=== PATIENT | female | born 1960 | race Caucasian/White ===

== ENCOUNTER 2020-08-03 00:48 | Inpatient (IN) | payer MEDICAID ==
[~2020-08-03] VITALS: Ht 157.5 cm; Wt 108.5 kg
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
[2020-08-03] MEDS ORDERED: SODIUM CHLORIDE 0.9% 1,000ML IVBOLUS ONE (02:00)
[2020-08-03] MEDS ORDERED: ONDANSETRON 2MG/ML, 2ML IVPush ONE (02:00)
[2020-08-03] MEDS ORDERED: HYDROmorphone 1 MG/ML, 1ML INJ IV ONE (02:00)
[2020-08-03] MEDS ORDERED: ONDANSETRON 2MG/ML, 2ML ONE ×2 (02:07→03:23)
[2020-08-03] MEDS ORDERED: HYDROmorphone 1 MG/ML, 1ML INJ ONE (02:07)
--- NOTE | 2020-08-03 02:15 | NUR ---
Patient is resting in bed. Bed in lowest, rails engaged, call light on lap. Vital Signs within normal limits. WCTM.
[2020-08-03] MEDS ORDERED: SULF500T47 PO (02:18)
[2020-08-03] MEDS ORDERED: HYDR200T72 PO (02:18)
[2020-08-03] MEDS ORDERED: PROBIOTIC (02:18)
[2020-08-03 02:30] LABS: BASOPHILS % (AUTO) 0 % (0-1); EOSINOPHILS % (AUTO) 0 % (1-7); LYMPHOCYTES % (AUTO) 6 % (22-44); MEAN CORPUSCULAR HEMOGLOBIN 33.5 pg (27.0-34.8); MEAN CORPUSCULAR HGB CONC 34.2 g/dL (32.4-35.8); MEAN PLATELET VOLUME 9.3 fL (7.4-10.4); MONOCYTES % (AUTO) 6 % (2-9); NEUTROPHILS % (AUTO) 88 % (42-75); PLATELET COUNT 179 x10^3/uL (130-400); RED BLOOD COUNT 4.68 x10^6/uL (3.82-5.3); RED CELL DISTRIBUTION WIDTH 14.2 % (9.6-15.2)
[2020-08-03 02:33] LABS: ALANINE AMINOTRANSFERASE 315 U/L (12-78); ALBUMIN 3.4 g/dL (3.4-5.0); ANION GAP 9 mmol/L (5-15); CALCIUM 7.8 mg/dL (8.5-10.1); CHLORIDE 108 mmol/L (98-107); CREATININE 0.88 mg/dL (0.55-1.02)
[2020-08-03 02:35] LABS: ALKALINE PHOSPHATASE 121 U/L (45-117); BILIRUBIN,TOTAL 0.5 mg/dL (0.2-1.0); TOTAL PROTEIN 7.4 g/dL (6.4-8.2)
[2020-08-03] MEDS ORDERED: hydrALAzine 20 MG/ML, 1ML ONE (02:58)
[2020-08-03] MEDS ORDERED: hydrALAzine 20 MG/ML, 1ML IV ONE (03:30)
[2020-08-03] MEDS ORDERED: HYDROmorphone 1 MG/ML, 1ML INJ IVPush PRN (03:30)
[2020-08-03] MEDS ORDERED: ONDANSETRON 2MG/ML, 2ML IVPush PRN ×2 (03:30→04:00)
[2020-08-03] MEDS ORDERED: SODIUM CHLORIDE 0.9% 1,000 ML IV ONE (03:30)
--- NOTE | 2020-08-03 03:37 | NUR ---
SPOKE TO PINEDA WALLACE ABOUT STAT ORDER MRI FOR PT AND WAS TOLD TO HAVE IT DONE AT 0600 WHEN MRI TECHS GOT TO WORK.
--- NOTE | 2020-08-03 03:37 | NUR ---
GAVE REPORT TO MELA MARROQUIN, [phone]
--- NOTE | 2020-08-03 03:45 | NUR ---
PT TAKEN TO FLOOR BY TECH, IN NO ACUTE DISTRESS.
[2020-08-03] MEDS ORDERED: ENALAPRILAT 1.25 MG/ML, 2ML IVPush PRN (04:00)
[2020-08-03] MEDS ORDERED: IBUPROFEN 600 MG TABLET PO PRN (04:00)
[2020-08-03] MEDS ORDERED: DOCUSATE 100 MG CAPSULE PO PRN (04:00)
[2020-08-03] MEDS ORDERED: THIAMINE 200 MG in DEXTROSE 5% 50 ML IVPB ONE (04:00)
[2020-08-03] MEDS ORDERED: LORazepam 2 MG/ML, 1ML IV PRN ×5 (04:00)
[2020-08-03] MEDS ORDERED: ZOLPIDEM 5MG TABLET PO PRN (04:00)
[2020-08-03] MEDS ORDERED: METOCLOPRAMIDE 5 MG/ML, 2ML IVPush PRN (04:00)
[2020-08-03] MEDS ORDERED: LORazepam 1MG TABLET PO PRN ×4 (04:00)
[2020-08-03] MEDS ORDERED: GUAIFENESIN/DM 200-20MG, 10ML UDC PO PRN (04:00)
[2020-08-03] MEDS: LACTATED RINGERS 1,000 ML IV SCH ×4 (04:28→18:36)
[2020-08-03] MEDS: LORazepam 0.5MG TABLET PO PRN ×2 (04:46→10:54)
[2020-08-03] MEDS: morphine SULFATE 10 MG/ML, 1ML IVPush PRN ×5 (04:47→21:57)
[2020-08-03 05:34] VITALS: BP 163/82
[2020-08-03 07:48] VITALS: BP 157/87
[2020-08-03] MEDS ORDERED: HYDROXYCHLOROQUINE 200 MG TABLET PO SCH (09:00)
[2020-08-03] MEDS ORDERED: FAMOTIDINE 20 MG/2 ML IVPush SCH (09:00)
[2020-08-03] MEDS ORDERED: SULFASALAZINE 500 MG TABLET PO SCH (09:00)
[2020-08-03 12:26] VITALS: BP 153/87
[2020-08-03] MEDS ORDERED: ENOXAPARIN 40 MG/0.4 ML SQ SCH (17:00)
[2020-08-03 20:00] VITALS: BP 159/86
[2020-08-03] MEDS: BACLOFEN 10 MG TABLET PO PRN (23:35)
[2020-08-04 01:01] VITALS: BP 133/81
[2020-08-04] MEDS: LACTATED RINGERS 1,000 ML IV SCH ×3 (01:25→14:26)
[2020-08-04] MEDS: morphine SULFATE 10 MG/ML, 1ML IVPush PRN ×4 (03:01→16:20)
[2020-08-04] MEDS ORDERED: LACTATED RINGERS 1,000 ML IV SCH (04:00)
[2020-08-04 05:33] LABS: BASOPHILS % (AUTO) 0 % (0-1); EOSINOPHILS % (AUTO) 0 % (1-7); LYMPHOCYTES % (AUTO) 4 % (22-44); MEAN CORPUSCULAR HEMOGLOBIN 33.6 pg (27.0-34.8); MEAN CORPUSCULAR HGB CONC 33.8 g/dL (32.4-35.8); MEAN PLATELET VOLUME 9.7 fL (7.4-10.4); MONOCYTES % (AUTO) 6 % (2-9); NEUTROPHILS % (AUTO) 90 % (42-75); PLATELET COUNT 160 x10^3/uL (130-400); RED BLOOD COUNT 4.97 x10^6/uL (3.82-5.3); RED CELL DISTRIBUTION WIDTH 14.4 % (9.6-15.2)
[2020-08-04 05:36] LABS: ALBUMIN 2.7 g/dL (3.4-5.0); ANION GAP 6 mmol/L (5-15); CALCIUM 8.4 mg/dL (8.5-10.1); CHLORIDE 108 mmol/L (98-107)
[2020-08-04 05:42] LABS: ALANINE AMINOTRANSFERASE 139 U/L (12-78); ALKALINE PHOSPHATASE 89 U/L (45-117); CREATININE 0.78 mg/dL (0.55-1.02); TOTAL PROTEIN 6.6 g/dL (6.4-8.2)
[2020-08-04 07:31] VITALS: BP 86/81
[2020-08-04 08:45] VITALS: BP 147/89
[2020-08-04 14:15] VITALS: BP 159/81
[2020-08-04] MEDS: ENOXAPARIN 30 MG/0.3 ML SQ SCH (14:24)
[2020-08-04] MEDS: CEFTRIAXONE 1,000 MG in DEXTROSE 5% 50 ML IVPB SCH (16:20)
[2020-08-04] MEDS: SODIUM CHLORIDE 0.9% 1,000 ML IV SCH ×2 (16:21→22:40)
[2020-08-04] MEDS: METRONIDAZOLE PMX 500MG/100ML 100 ML IV SCH (16:58)
[2020-08-04 19:26] VITALS: BP 138/82
[2020-08-04] MEDS ORDERED: CALCIUM CARBONATE 500 MG TAB.CHEW PO ONE (23:30)
[2020-08-05] MEDS: BACLOFEN 10 MG TABLET PO PRN (00:18)
[2020-08-05] MEDS: METRONIDAZOLE PMX 500MG/100ML 100 ML IV SCH ×3 (00:21→16:17)
[2020-08-05 00:52] VITALS: BP 134/84
[2020-08-05] MEDS: ENOXAPARIN 30 MG/0.3 ML SQ SCH ×2 (02:09→14:10)
[2020-08-05] MEDS: morphine SULFATE 10 MG/ML, 1ML IVPush PRN ×3 (02:09→19:53)
[2020-08-05 05:20] LABS: MEAN CORPUSCULAR HEMOGLOBIN 33.1 pg (27.0-34.8); MEAN CORPUSCULAR HGB CONC 33.5 g/dL (32.4-35.8); MEAN PLATELET VOLUME 9.9 fL (7.4-10.4); PLATELET COUNT 152 x10^3/uL (130-400); RED BLOOD COUNT 4.45 x10^6/uL (3.82-5.3); RED CELL DISTRIBUTION WIDTH 14.1 % (9.6-15.2)
[2020-08-05] MEDS: SODIUM CHLORIDE 0.9% 1,000 ML IV SCH ×3 (05:20→19:53)
[2020-08-05 05:31] LABS: CHLORIDE 106 mmol/L (98-107)
[2020-08-05 05:46] LABS: ALANINE AMINOTRANSFERASE 77 U/L (12-78); ALBUMIN 2.3 g/dL (3.4-5.0); ALKALINE PHOSPHATASE 90 U/L (45-117); ANION GAP 9 mmol/L (5-15); BILIRUBIN,TOTAL 1.1 mg/dL (0.2-1.0); CALCIUM 8.3 mg/dL (8.5-10.1); CREATININE 0.59 mg/dL (0.55-1.02); TOTAL PROTEIN 6.4 g/dL (6.4-8.2)
[2020-08-05 06:25] LABS: BAND#(MANUAL) 2.65 x10^3/uL; BANDS%(MANUAL) 14 % (0-7); LYMPH#(MANUAL) 0.95 x10^3/uL (1-3.4); LYMPHS% (MANUAL) 5 % (22-44); MONOS#(MANUAL) 1.13 x10^3/uL (0.3-2.7); MONOS% (MANUAL) 6 % (2-9); SEG#(MANUAL) 14.18 x10^3/uL (1.8-6.8); SEGS% (MANUAL) 75 % (42-75)
[2020-08-05 06:26] LABS: <PLATELET ESTIMATE> DECREASED; <PLT MORPHOLOGY> NORMAL PLT MORPH; <RBC MORPHOLOGY> NORMAL
[2020-08-05 06:27] LABS: PMNS WITH VACUOLES 1+
[2020-08-05 07:02] VITALS: BP 146/86
[2020-08-05] MEDS ORDERED: BISACODYL 10 MG SUPP PR PRN (08:30)
[2020-08-05] MEDS: SENNA/DOCUSATE TABLET PO SCH (09:03)
[2020-08-05] MEDS: CALCIUM CARBONATE 500 MG TAB.CHEW PO PRN ×3 (12:07→19:53)
[2020-08-05 12:22] VITALS: BP 130/82
[2020-08-05] MEDS: CEFTRIAXONE 1,000 MG in DEXTROSE 5% 50 ML IVPB SCH (15:10)
[2020-08-05 19:02] VITALS: BP 130/70
[2020-08-06 00:17] VITALS: BP 132/73
[2020-08-06] MEDS: ENOXAPARIN 30 MG/0.3 ML SQ SCH ×2 (01:33→14:00)
[2020-08-06] MEDS: morphine SULFATE 10 MG/ML, 1ML IVPush PRN (01:34)
[2020-08-06] MEDS: SODIUM CHLORIDE 0.9% 1,000 ML IV SCH (02:40)
[2020-08-06 05:29] LABS: MEAN CORPUSCULAR HEMOGLOBIN 33.2 pg (27.0-34.8); MEAN CORPUSCULAR HGB CONC 33.4 g/dL (32.4-35.8); MEAN PLATELET VOLUME 9.4 fL (7.4-10.4); PLATELET COUNT 165 x10^3/uL (130-400); RED BLOOD COUNT 4.07 x10^6/uL (3.82-5.3); RED CELL DISTRIBUTION WIDTH 13.9 % (9.6-15.2)
[2020-08-06 05:32] LABS: ALBUMIN 2.2 g/dL (3.4-5.0); ANION GAP 6 mmol/L (5-15); CALCIUM 8.4 mg/dL (8.5-10.1); CHLORIDE 105 mmol/L (98-107)
[2020-08-06 05:35] LABS: ALANINE AMINOTRANSFERASE 57 U/L (12-78); ALKALINE PHOSPHATASE 79 U/L (45-117); BILIRUBIN,TOTAL 0.9 mg/dL (0.2-1.0); CREATININE 0.52 mg/dL (0.55-1.02); TOTAL PROTEIN 6.2 g/dL (6.4-8.2)
[2020-08-06 06:13] LABS: <PLATELET ESTIMATE> DECREASED; <PLT MORPHOLOGY> NORMAL PLT MORPH; ANISOCYTOSIS 1+; BAND#(MANUAL) 0.88 x10^3/uL; BANDS%(MANUAL) 6 % (0-7); LYMPH#(MANUAL) 0.59 x10^3/uL (1-3.4); LYMPHS% (MANUAL) 4 % (22-44); METAMYELOCYTES# (MANUAL) 0.29 x10^3/uL (0-0); METAMYELOCYTES% (MANUAL) 2 % (0-1); MONOS#(MANUAL) 0.74 x10^3/uL (0.3-2.7); MONOS% (MANUAL) 5 % (2-9); PMNS WITH VACUOLES 1+; POLYCHROMASIA 1+; SEGS% (MANUAL) 83 % (42-75)
[2020-08-06 07:14] VITALS: BP 124/79
[2020-08-06] MEDS: SENNA/DOCUSATE TABLET PO SCH (08:12)
[2020-08-06] MEDS: METRONIDAZOLE PMX 500MG/100ML 100 ML IV SCH ×3 (08:13→16:36)
[2020-08-06] MEDS: CALCIUM CARBONATE 500 MG TAB.CHEW PO PRN (08:28)
[2020-08-06] MEDS ORDERED: CALCIUM CARBONATE 500 MG TAB.CHEW PO PRN (11:30)
[2020-08-06 12:52] VITALS: BP 161/85
[2020-08-06] MEDS ORDERED: OMNIPAQUE 350 MG/ML, 100ML BOTTLE ONE (12:56)
[2020-08-06] MEDS: CEFTRIAXONE 1,000 MG in DEXTROSE 5% 50 ML IVPB SCH (16:35)
[2020-08-06] MEDS: BACLOFEN 10 MG TABLET PO PRN (17:15)
[2020-08-06 18:43] VITALS: BP 149/90
[2020-08-06] MEDS: DOXYCYCLINE 100MG TABLET PO SCH (20:41)
[2020-08-06] MEDS: THIAMINE 100MG TABLET PO SCH (20:41)
[2020-08-07] MEDS: ENOXAPARIN 30 MG/0.3 ML SQ SCH (00:33)
[2020-08-07] MEDS: METRONIDAZOLE PMX 500MG/100ML 100 ML IV SCH ×2 (00:33→08:30)
[2020-08-07 00:40] VITALS: BP 140/80
[2020-08-07 07:54] VITALS: BP 141/78
[2020-08-07] MEDS: THIAMINE 100MG TABLET PO SCH (08:30)
[2020-08-07] MEDS: SENNA/DOCUSATE TABLET PO SCH (08:30)
[2020-08-07] MEDS: DOXYCYCLINE 100MG TABLET PO SCH (08:30)
[2020-08-07] MEDS ORDERED: MULTIVITAMIN 1 TABLET PO SCH (09:00)
[2020-08-07] MEDS ORDERED: FOLIC ACID 1 MG TABLET PO SCH (09:00)
[2020-08-07 13:30] VITALS: BP 130/79
[2020-08-07] MEDS ORDERED: MULT-482 PO (13:41)
[2020-08-07] MEDS ORDERED: FOLI1TAB32 PO (13:41)
[2020-08-07] MEDS ORDERED: CEFD300C37 PO (13:41)
[2020-08-07] MEDS ORDERED: THIA100T67 PO (13:41)
[2020-08-07] MEDS ORDERED: METR500T PO (13:41)
[2020-08-07] MEDS ORDERED: DOXY100T23 PO (13:41)
== END 2020-08-07 15:38 | disposition home or self-care (01) | DRG 282 ==
LOC: ED 03:28 → EDIP 03:29 → 4WST 03:55
PROVIDERS: ADMIT Internal Medicine; ATTEND Internal Medicine
DX: K85.20 Alcohol induced acute pancreatitis without necrosis or infection (principal); J96.01 Acute respiratory failure with hypoxia; E66.9 Obesity, unspecified; J18.9 Pneumonia, unspecified organism; K76.0 Fatty (change of) liver, not elsewhere classified; F10.10 Alcohol abuse, uncomplicated; F17.210 Nicotine dependence, cigarettes, uncomplicated; K80.21 Calculus of gallbladder without cholecystitis with obstruction; M06.9 Rheumatoid arthritis, unspecified; Z68.41 Body mass index [BMI] 40.0-44.9, adult; Z85.038 Personal history of other malignant neoplasm of large intestine; Z90.49 Acquired absence of other specified parts of digestive tract; Z71.6 Tobacco abuse counseling
CPT/HCPCS: 36415; 71045; 71275; 74181; 80053; 83690; 84145; 85025; 85379; 87040; 93005; 96374; 96375; G0378; J0696; J1170; J1650; J2405; J3411; Q9967; J0360; J2270; J2765; J7030; J7120